=== PATIENT | female | born 1965 | race Caucasian/White ===

== ENCOUNTER 2018-07-17 08:10 | Outpatient (CLI) | payer BC | END 2018-07-17 08:11 | disposition home or self-care (01) | LOC: RAD 08:10 | DX: Z12.31 Encounter for screening mammogram for malignant neoplasm of breast (principal); E05.90 Thyrotoxicosis, unspecified without thyrotoxic crisis or storm; Z80.3 Family history of malignant neoplasm of breast ==

== ENCOUNTER 2018-08-05 17:10 | Emergency (ER) | payer BC ==
[2018-08-05] MEDS ORDERED: Sodium Chloride 0.9% 1,000 ML IV STA (17:28)
--- NOTE | 2018-08-05 17:34 | ED PDOC ---
Arrival/HPI - General Chief Complaint: Palpitations Time Seen by Provider: 08/05/18 17:20 Historian: Patient - History of Present Illness Narrative History of Present Illness (Text): 08/05/18 17:34 53 year old female, withhyperthyroid/graves non compliant with meds, presents to the ED for evaluation of chest tightness, palpitations and cough since 3 days. Patient informs unchanged symptoms since onset prompting her to present to the ED. Patient denies any other associated somatic complaints. in the er, pt anxious appearing on arrival. Patient denies any fevers, chills, headache, dizziness, chest pain, shortness of breath, dyspnea on exertion, abdominal pain, nausea, vomiting, diarrhea, back pain, neck pain, or any other complaints. 08/05/18 20:52 Time/Duration: < week Symptom Onset: Gradual Symptom Course: Unchanged Activities at Onset: Light Context: Home Past Medical History - Provider Review Nursing Documentation Reviewed: Yes - Infectious Disease Hx of Infectious Diseases: None - Reproductive Menopause: Yes Currently : Unknown - Cardiac Hx Cardiac Disorders: No - Musculoskeletal/Rheumatological Hx Musculoskeletal Disorders: No - Psychiatric Hx Substance Use: No - Anesthesia Hx Anesthesia: No Family/Social History - Physician Review Nursing Documentation Reviewed: Yes Family/Social History: No Known Family HX Smoking Status: Unknown If Ever Smoked Hx Alcohol Use: No Hx Substance Use: No Allergies/Home Meds Allergies/Adverse Reactions: Allergies No Known Allergies Allergy (Unverified 08/05/18 17:26) Review of Systems - Physician Review All systems were reviewed & negative as marked: Yes - Review of Systems Constitutional: absent: Fevers Respiratory: Cough. absent: SOB Cardiovascular: Palpitations, Other (Chest tightness). absent: Chest Pain Gastrointestinal: absent: Abdominal Pain, Diarrhea, Nausea, Vomiting Genitourinary Female: absent: Dysuria, Urine Output Changes Musculoskeletal: absent: Back Pain, Neck Pain Skin: absent: Rash Neurological: absent: Headache, Dizziness Psychiatric: absent: Anxiety Physical Exam Vital Signs Reviewed: Yes Vital Signs Temp Pulse Resp BP Pulse Ox 08/05/18 17:19 98.3 F 125 H 20 141/79 99 Temperature: Afebrile Blood Pressure: Normal Pulse: Tachycardic Respiratory Rate: Normal Appearance: Positive for: Other (Anxious appearing) Pain Distress: None Mental Status: Positive for: Alert and Oriented X 3 - Systems Exam Head: Present: Atraumatic, Normocephalic Pupils: Present: PERRL Extroacular Muscles: Present: EOMI Conjunctiva: Present: Normal Mouth: Present: Moist Mucous Membranes Neck: Present: Normal Range of Motion Respiratory/Chest: Present: Clear to Auscultation, Good Air Exchange. No: Respiratory Distress, Accessory Muscle Use Cardiovascular: Present: Regular Rate and Rhythm, Normal S1, S2. No: Murmurs Abdomen: No: Tenderness, Distention, Peritoneal Signs Back: Present: Normal Inspection Upper Extremity: Present: Normal Inspection. No: Cyanosis, Edema Lower Extremity: Present: Normal Inspection. No: Edema Neurological: Present: GCS=15, CN II-XII Intact, Speech Normal Skin: Present: Warm, Dry, Normal Color. No: Rashes Psychiatric: Present: Alert, Oriented x 3, Anxious Medical Decision Making ED Course and Treatment: 08/05/18 17:26 Impression: 53 year old female presents to the ED for evaluation of chest tightness, palpitations and cough. pt tachy to 120s non complaint with meds. ?thryotoxoicosis vs early storm, r/o other cardiac infectious metabolic etiology Plan: -- EKG -- Labs -- CXR -- IV Fluids -- Tylenol -- Influenza -- Urinalysis -- Reassess and disposition Prior Visits: Notes and results from previous visits were reviewed. Progress Notes: 08/05/18 17:26 EKG reviewed, shows NSR @ 100bpm. Nonspecific ST/T wave changes. 08/05/18 20:52 noted tsh. tachycardiar improved. non complaint with meds. case discusseed with dr valiente not [facility], [place] no e/o o fstorm at this time, acccepted dr bassett. - RAD Interpretation Radiology Orders: 08/05/18 17:27 CHEST PORTABLE [RAD] Stat - Medication Orders Current Medication Orders: Sodium Chloride (Sodium Chloride 0.9%) 1,000 mls @ 999 mls/hr IV .Q1H1M STA Stop: 08/05/18 18:28 Discontinued Medications Acetaminophen (Tylenol 325mg Tab) 975 mg PO STAT STA Stop: 08/05/18 17:29 - Scribe Statement The provider has reviewed the documentation as recorded by the Scribe Lakeisha Marion. All medical record entries made by the Scribe were at my direction and personally dictated by me. I have reviewed the chart and agree that the record accurately reflects my personal performance of the history, physical exam, medical decision making, and the department course for this patient. I have also personally directed, reviewed, and agree with the discharge instructions and disposition. Disposition/Present on Arrival - Present on Arrival Any Indicators Present on Arrival: No History of DVT/PE: No History of Uncontrolled Diabetes: No Urinary Catheter: No History of Decub. Ulcer: No History Surgical Site Infection Following: None - Disposition Have Diagnosis and Disposition been Completed?: Yes Diagnosis: Hyperthyroidism, Palpitations Disposition: HOSPITALIZED Disposition Time: 17:00 Condition: STABLE Discharge Instructions (ExitCare): Hyperthyroidism (Overactive Thyroid), Palpitations Prescriptions: methIMAzole [Tapazole] 20 mg PO BID #240 tab Propranolol HCl [Propranolol HCl ER] 60 mg PO DAILY #60 cap.sa.24h Referrals: Kamlesh Bassett DO [Primary Care Provider] - Follow up with primary
[2018-08-05 18:08] LABS: INR 1.13; PARTIAL THROMBOPLASTIN TIME 33.2 Seconds (26.9-38.3); PROTHROMBIN TIME 12.5 SECONDS (9.4-12.5)
[2018-08-05 18:09] LABS: ALB/GLOB RATIO 1.3 (1.1-1.8); ALBUMIN 4.7 g/dL (3.0-4.8); ALT/SGPT 19 U/L (7-56); AST/SGOT 23 U/L (14-36); BLOOD UREA NITROGEN 19 mg/dL (7-21); CALCIUM 9.3 mg/dL (8.4-10.5); GFR NON-AFRICAN AMERICAN > 60
[2018-08-05] MEDS ORDERED: Potassium Chloride 20 mEq ER Tab PO STA (18:10)
[2018-08-05 18:11] LABS: BASO # 0.01 K/mm3 (0.0-2.0); BASO % 0.4 % (0.0-3.0); HEMOGLOBIN 15.6 g/dL (12.0-16.0); LYMPH # 1.2 (1.2-3.4); LYMPH % 43.6 % (22.0-35.0); MEAN CELL VOLUME 79.4 fl (80.0-105.0); MEAN CORPUSCULAR HEMOGLOBIN 28.2 pg (25.0-35.0); MEAN CORPUSCULAR HGB CONC 35.5 g/dl (31.0-37.0); MEAN PLATELET VOLUME 9.5 fl (7.0-11.0); MONO # 0.4 (0.1-0.6); MONO % 12.8 % (1.0-6.0); RBC 5.53 10^6/uL (3.5-6.1); WHITE BLOOD COUNT 2.7 10^3/uL (4.5-11.0)
[2018-08-05 18:12] LABS: URINE BILIRUBIN NEGATIVE (NEGATIVE); URINE BLOOD NEGATIVE (NEGATIVE); URINE GLUCOSE (UA) NEGATIVE (NEGATIVE); URINE LEUKOCYTE ESTERASE NEGATIVE Leu/uL (NEGATIVE); URINE PROTEIN TRACE mg/dL (<30 mg/dL); URINE UROBILINOGEN 0.2 E.U./dL (<1 E.U./dL)
[2018-08-05 18:19] LABS: URINE APPEARANCE CLEAR (CLEAR); URINE COLOR YELLOW (YELLOW)
[2018-08-05 18:21] LABS: TROPONIN I < 0.01 ng/mL
[2018-08-05 18:26] LABS: FREE T4 5.21 ng/dL (0.78-2.19)
[2018-08-05 18:26] LABS: HCG,QUALITATIVE URINE NEGATIVE (NEGATIVE)
[2018-08-05 18:50] LABS: URINE BACTERIA MOD /hpf; URINE RBC 0 - 2 /hpf (0-2)
[2018-08-05] MEDS ORDERED: Dextrose 5%/0.9% NS 1,000 ML IV SCH (20:00)
--- NOTE | 2018-08-05 20:56 | CP.PCM.CON ---
<Charles Medina - Last Filed: 08/05/18 21:21> History of Present Illness - History of Present Illness History of Present Illness: Charles Medina PGY2 ICU Consult Note Reason for consult: hyperthyroid Ms. Hyatt is a 53 year old female with a PMH of Grave's disease (non-compliant with her meds) who presents w/ 3 day duration of chest tightness, palpitations, cough and overall fatigue. The patient states that she has had similar symptoms before related to her thyroid dysfunction, but never felt the chest tightness that she experienced recently. She denies any shortness of breath. She states that she was placed on Methimazole and Lopressor in 2016 when she was diagnosed with Grave's but she takes them inconsistently when she is symptomatic; she has not taken her meds in about 3 months. She denies fevers/chills, nausea/vomiting/diarrhea, paresthesia, dizziness. 12-pt ROS was reviewed and is otherwise unremarkable. PMD: Dr. Javier Endocrinology: Dr. 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 FHx: Mom (liver CA), DAD (colon CA), Aunt from mom's side (pancreatic CA) Review of Systems - Review of Systems All systems: reviewed and no additional remarkable complaints except (as per HPI) Past Patient History - Infectious Disease Hx of Infectious Diseases: None - Past Medical History & Family History Past Medical History?: Yes - Past Social History Smoking Status: Unknown If Ever Smoked Alcohol: None Drugs: Denies Home Situation {Lives}: With Family - CARDIAC Hx Cardiac Disorders: No - PULMONARY Hx Respiratory Disorders: No - NEUROLOGICAL Hx Neurological Disorder: No - RENAL Hx Chronic Kidney Disease: No - ENDOCRINE/METABOLIC Hx Hyperthyroidism: Yes - MUSCULOSKELETAL/RHEUMATOLOGICAL Hx Musculoskeletal Disorders: No - PSYCHIATRIC Hx Substance Use: No - ANESTHESIA Hx Anesthesia: No Meds Allergies/Adverse Reactions: Allergies Allergy/AdvReac Type Severity Reaction Status Date / Time No Known Allergies Allergy Unverified 08/05/18 17:26 - Medications Medications: Current Medications Dextrose/Sodium Chloride (Dextrose 5%/0.9% Ns 1000 Ml) 1,000 mls @ 100 mls/hr IV .Q10H ОЛЕГ Methimazole (Tapazole) 10 mg PO BID [facility] Physical Exam - Constitutional Appears: Well, Non-toxic, No Acute Distress - Head Exam Head Exam: ATRAUMATIC, NORMAL INSPECTION, NORMOCEPHALIC - Eye Exam Eye Exam: EOMI, Normal appearance, PERRL - ENT Exam ENT Exam: Mucous Membranes Moist, Normal Exam - Neck Exam Neck exam: Positive for: Full Rom, Normal Inspection. Negative for: Tenderness, Thyromegaly - Respiratory Exam Respiratory Exam: Clear to Auscultation Bilateral, NORMAL BREATHING PATTERN. absent: Rales, Rhonchi, Wheezes, Respiratory Distress - Cardiovascular Exam Cardiovascular Exam: RRR, +S1, +S2. absent: JVD - GI/Abdominal Exam GI & Abdominal Exam: Normal Bowel Sounds, Soft. absent: Distended, Tenderness - Extremities Exam Extremities exam: Positive for: full ROM, normal inspection, pedal pulses present. Negative for: tenderness - Back Exam Back exam: NORMAL INSPECTION - Neurological Exam Neurological exam: Alert, CN II-XII Intact, Oriented x3, Reflexes Normal - Psychiatric Exam Psychiatric exam: Normal Affect, Normal Mood - Skin Skin Exam: Intact, Normal Color, Warm Results - Vital Signs Recent Vital Signs: Last Vital Signs Temp 98.3 F 08/05/18 17:19 Pulse 90 08/05/18 17:27 Resp 15 08/05/18 17:27 BP 124/65 08/05/18 17:27 Pulse Ox 100 08/05/18 17:27 - Labs Result Diagrams: 08/05/18 17:47 08/05/18 17:47 Labs: Laboratory Results - last 24 hr 08/05/18 08/05/18 08/05/18 17:47 17:47 17:47 WBC 2.7 L RBC 5.53 Hgb 15.6 Hct 43.9 MCV 79.4 L MCH 28.2 MCHC 35.5 RDW 12.0 Plt Count 246 MPV 9.5 Neut % (Auto) 43.2 L Lymph % (Auto) 43.6 H [place] % (Auto) 12.8 H Eos % (Auto) 0.0 L Baso % (Auto) 0.4 Lymph # (Auto) 1.2 [place] # (Auto) 0.4 Eos # (Auto) 0.0 Baso # (Auto) 0.01 Absolute Neuts (auto) 1.18 L PT 12.5 INR 1.13 APTT 33.2 Sodium 137 Potassium 3.0 L Chloride 97 L Carbon Dioxide 29 Anion Gap 14 BUN 19 Creatinine 0.5 L Est GFR ( Amer) > 60 Est GFR (Non-Af Amer) > 60 Random Glucose 112 H Calcium 9.3 Magnesium 1.9 Total Bilirubin 0.5 AST 23 ALT 19 Alkaline Phosphatase 87 Lactate Dehydrogenase 384 Total Creatine Kinase 31 L Troponin I < 0.01 NT-Pro-B Natriuret Pep 53.0 Total Protein 8.2 Albumin 4.7 Globulin 3.5 Albumin/Globulin Ratio 1.3 Free T4 TSH 3rd Generation Urine Color Urine Appearance Urine pH Ur Specific [place]man Urine Protein Urine Glucose (UA) Urine Ketones Urine Blood Urine Nitrate Urine Bilirubin Urine Urobilinogen Ur Leukocyte Esterase Urine RBC Urine WBC Ur Epithelial Cells Urine Bacteria Urine Other Urine HCG, Qual Influenza Typ A,B (EIA) 08/05/18 08/05/18 08/05/18 17:47 17:47 18:05 WBC RBC Hgb Hct MCV MCH MCHC RDW Plt Count MPV Neut % (Auto) Lymph % (Auto) [place] % (Auto) Eos % (Auto) Baso % (Auto) Lymph # (Auto) [place] # (Auto) Eos # (Auto) Baso # (Auto) Absolute Neuts (auto) PT INR APTT Sodium Potassium Chloride Carbon Dioxide Anion Gap BUN Creatinine Est GFR ( Amer) Est GFR (Non-Af Amer) Random Glucose Calcium Magnesium Total Bilirubin AST ALT Alkaline Phosphatase Lactate Dehydrogenase Total Creatine Kinase Troponin I NT-Pro-B Natriuret Pep Total Protein Albumin Globulin Albumin/Globulin Ratio Free T4 5.21 H TSH 3rd Generation < 0.02 L Urine Color Yellow Urine Appearance Clear Urine pH 6.0 Ur Specific [place] >= 1.030 Urine Protein Trace H Urine Glucose (UA) Negative Urine Ketones >=80 Urine Blood Negative Urine Nitrate Negative Urine Bilirubin Negative Urine Urobilinogen 0.2 Ur Leukocyte Esterase Negative Urine RBC 0 - 2 Urine WBC 2 - 5 Ur Epithelial Cells 6 - 8 H Urine Bacteria Mod Urine Other Mucus Urine HCG, Qual Negative Influenza Typ A,B (EIA) Negative for flu a/b Assessment & Plan - Assessment and Plan (Free Text) Assessment: 53 year old female with a PMH of Grave's disease (non-compliant with her meds) who presents w/ 3 day duration of chest tightness, palpitations, cough and overall fatigue. TSH is low, and fT4 is elevated indicating hyperthyroidism, that is symptomatic. Symptoms due to non-compliance with medications. ICU consulted for evaluation of hyperthyroidism. Plan: - agree w/ admission to telemetry unit - no need for ICU admission at this time, please consult if any changes in status - Endo is consulted - cont methimazole - cont symptomatic relief Case was discussed with Dr. Cleary <Nina Cleary - Last Filed: 08/05/18 21:30> Meds - Medications Medications: Current Medications Dextrose/Sodium Chloride (Dextrose 5%/0.9% Ns 1000 Ml) 1,000 mls @ 100 mls/hr IV .Q10H ОЛЕГ Last Admin: 08/05/18 21:04 Dose: 100 mls/hr Methimazole (Tapazole) 10 mg PO BID ОЛЕГ Last Admin: 08/05/18 21:05 Dose: 10 mg Results - Vital Signs Recent Vital Signs: Last Vital Signs Temp 98.3 F 08/05/18 17:19 Pulse 93 H 08/05/18 21:04 Resp 15 08/05/18 17:27 BP 110/60 08/05/18 21:04 Pulse Ox 100 08/05/18 17:27 - Labs Result Diagrams: 08/05/18 17:47 08/05/18 17:47 Labs: Laboratory Results - last 24 hr 08/05/18 08/05/18 08/05/18 17:47 17:47 17:47 WBC 2.7 L RBC 5.53 Hgb 15.6 Hct 43.9 MCV 79.4 L MCH 28.2 MCHC 35.5 RDW 12.0 Plt Count 246 MPV 9.5 Neut % (Auto) 43.2 L Lymph % (Auto) 43.6 H [place] % (Auto) 12.8 H Eos % (Auto) 0.0 L Baso % (Auto) 0.4 Lymph # (Auto) 1.2 [place] # (Auto) 0.4 Eos # (Auto) 0.0 Baso # (Auto) 0.01 Absolute Neuts (auto) 1.18 L PT 12.5 INR 1.13 APTT 33.2 Sodium 137 Potassium 3.0 L Chloride 97 L Carbon Dioxide 29 Anion Gap 14 BUN 19 Creatinine 0.5 L Est GFR ( Amer) > 60 Est GFR (Non-Af Amer) > 60 Random Glucose 112 H Calcium 9.3 Magnesium 1.9 Total Bilirubin 0.5 AST 23 ALT 19 Alkaline Phosphatase 87 Lactate Dehydrogenase 384 Total Creatine Kinase 31 L Troponin I < 0.01 NT-Pro-B Natriuret Pep 53.0 Total Protein 8.2 Albumin 4.7 Globulin 3.5 Albumin/Globulin Ratio 1.3 Free T4 TSH 3rd Generation Urine Color Urine Appearance Urine pH Ur Specific [place] Urine Protein Urine Glucose (UA) Urine Ketones Urine Blood Urine Nitrate Urine Bilirubin Urine Urobilinogen Ur Leukocyte Esterase Urine RBC Urine WBC Ur Epithelial Cells Urine Bacteria Urine Other Urine HCG, Qual Influenza Typ A,B (EIA) 08/05/18 08/05/18 08/05/18 17:47 17:47 18:05 WBC RBC Hgb Hct MCV MCH MCHC RDW Plt Count MPV Neut % (Auto) Lymph % (Auto) [place] % (Auto) Eos % (Auto) Baso % (Auto) Lymph # (Auto) [place] # (Auto) Eos # (Auto) Baso # (Auto) Absolute Neuts (auto) PT INR APTT Sodium Potassium Chloride Carbon Dioxide Anion Gap BUN Creatinine Est GFR ( Amer) Est GFR (Non-Af Amer) Random Glucose Calcium Magnesium Total Bilirubin AST ALT Alkaline Phosphatase Lactate Dehydrogenase Total Creatine Kinase Troponin I NT-Pro-B Natriuret Pep Total Protein Albumin Globulin Albumin/Globulin Ratio Free T4 5.21 H TSH 3rd Generation < 0.02 L Urine Color Yellow Urine Appearance Clear Urine pH 6.0 Ur Specific [place] >= 1.030 Urine Protein Trace H Urine Glucose (UA) Negative Urine Ketones >=80 Urine Blood Negative Urine Nitrate Negative Urine Bilirubin Negative Urine Urobilinogen 0.2 Ur Leukocyte Esterase Negative Urine RBC 0 - 2 Urine WBC 2 - 5 Ur Epithelial Cells 6 - 8 H Urine Bacteria Mod Urine Other Mucus Urine HCG, Qual Negative Influenza Typ A,B (EIA) Negative for flu a/b Attending/Attestation - Attestation I have personally seen and examined this patient.: Yes I have fully participated in the care of the patient.: Yes I have reviewed all pertinent clinical information: Yes Notes (Text): 08/05/18 21:28 All symptoms can be attributed to hyperthyroidism Pt. admits to not taking methimazole because she thought she was cured chest tightness, recommends trending troponin started home metoprolol, methimazole and added D5NS at 100 cc/hr
--- NOTE | 2018-08-05 23:22 | CARD ---
APPROVED REPORT Date of service: 08/05/2018 EKG Measurement Heart [id number] MD [id number] <Conclusion> Normal sinus rhythm Possible Left atrial enlargement Minor NDSTT abnormalities Borderline ECG
--- NOTE | 2018-08-06 01:00 | CON ---
DATE: 08/05/2018 ENDOCRINOLOGY CONSULT HISTORY OF PRESENT ILLNESS: This is a 53-year-old female with known history of hyperthyroidism related to Graves disease, presenting here with progressively worsening palpitations and precordial chest pain and is now being referred for endocrine evaluation and management. PAST MEDICAL HISTORY: History of Graves disease with hyperthyroidism diagnosed about 3 years ago and was placed on methimazole and Lopressor at that time which she has been poorly compliant until the present time. She has been off medications about 3 months ago. FAMILY HISTORY: No known thyroid endocrinopathy but strongly positive for GI related cancers as noted. SOCIAL HISTORY: The patient has a supportive family. No known substance use. REVIEW OF SYSTEMS: Admits to generalized body weakness with episodic bouts of dizziness and lightheadedness, supervening generalized body weakness with marked insomnia, especially worse in the last few weeks prior to admission. Also admits to progressively worsening chest pains with palpitations, especially on exertion, with exertional shortness of breath as noted. Her oral intake has been variable with nausea, dyspepsia and vague upper abdominal pains with hyperdefecation. Also admits to occasional tremors, especially in upper extremities. PHYSICAL EXAMINATION: GENERAL: This is an average build female in no apparent distress. VITAL SIGNS: Blood pressure of 140/80, pulse of 70 beats per minute and regular, temperature 98, respirations 20, height is 5 feet 3 inches, weight is 120 pounds. HEENT: Head normocephalic. Eyes anicteric with pink conjunctivae. Funduscopy not possible at this time. Ears, nose and throat otherwise normal. NECK: Supple. Thyroid gland shows nodular thyromegaly which is firm and nontender. HEART: Hyperdynamic precordium. S1, S2 is rapid and regular. LUNGS: Clear to auscultation. ABDOMEN: Flat, soft, with positive bowel sounds. EXTREMITIES: No peripheral edema. Pulses are +2 bilaterally. LABORATORY DATA: Her chemistries showed BUN of 19, sodium 137, potassium 3, chloride 97, CO2 of 29, glucose 112 and creatinine 0.5. Her free T4 is 5.21 with a TSH of less than 0.02. Troponin is less than 0.01. ASSESSMENT: This is a 53-year-old female with overt thyrotoxicosis, presenting here with marked hyperthyroidism noted both historically, clinically and biochemically related to underlying Graves disease with a diffuse toxic goiter. She also has marked hyperadrenergic and constitutional manifestations related to the aforementioned. PLAN OF MANAGEMENT: We will modify her medical therapy to a higher dosing of Tapazole given as 20 mg b.i.d. to start tomorrow morning as ordered. We will obtain a comprehensive thyroid hormonal profile to include a total and free T4 and TSH as ordered. We will also obtain a thyroid-stimulating immunoglobulin, a thyroid peroxidase antibody and a thyroglobulin panel to confirm and/or indicate the presence of underlying thyroid autoimmunity. We will obtain serial chemistries and supplement accordingly as needed. Would recommend radioactive iodine ablation to enhance compliance at this point in time, although medical therapy would be a better option if the patient will be compliant with her medications as noted. We will obtain a thyroid ultrasound, even to be done as an outpatient as she is only admitted for observation overnight. We will continue the beta blockers as ordered, and again to enhance compliance on discharge, would recommend long-acting propranolol given as 80 mg once daily as indicated. The Tapazole can be given also once a day with a dose of 20-30 mg once daily as indicated. We will await the results of the thyroxine or total T4 level as this is more indicative of three of hyperthyroidism accordingly. We will follow. Shanika Livingston MD
[2018-08-06 04:46] VITALS: BP 116/68; PULSE 74; RESP 16; TEMP 98.2; O2SAT 98
--- NOTE | 2018-08-06 07:16 | CP.PCM.PN ---
Subjective - Date & Time of Evaluation Date of Evaluation: 08/06/18 Time of Evaluation: 07:20 - Subjective Subjective: Endocrine Service Progress Note for Dr. Miki Cooper DO, IM PGY-3 Patient seen and examined at bedside. No acute events overnight as per nursing and patient. Patient reports improvement of palpitations and chest pain today. Reinforced that this will continue to happen if she continues to stop taking her medication every time she feels better. Patient expressed understanding and reports that she is contemplating having a thyroidectomy. Explained that she will then need thyroid supplementation, which also requires medication compliance; patient expressed understanding. Objective - Vital Signs/Intake and Output Vital Signs (last 24 hours): Temp Pulse Resp BP Pulse Ox 98.2 F 74 16 116/68 98 08/06/18 02:42 08/06/18 02:42 08/06/18 02:42 08/06/18 02:42 08/06/18 02:42 - Medications Medications: Current Medications Dextrose/Sodium Chloride (Dextrose 5%/0.9% Ns 1000 Ml) 1,000 mls @ 100 mls/hr IV .Q10H ОЛЕГ Last Admin: 08/05/18 21:04 Dose: 100 mls/hr Methimazole (Tapazole) 20 mg PO BID ОЛЕГ - Labs Labs: 08/05/18 17:47 08/05/18 17:47 PT 12.5 SECONDS (9.4-12.5) 08/05/18 17:47 INR 1.13 08/05/18 17:47 APTT 33.2 Seconds (26.9-38.3) 08/05/18 17:47 - Constitutional Appears: Non-toxic, No Acute Distress - Head Exam Head Exam: ATRAUMATIC, NORMAL INSPECTION, NORMOCEPHALIC - Eye Exam Eye Exam: EOMI, Normal appearance. absent: Conjunctival injection, Scleral icterus Pupil Exam: absent: Irregular, Unequal - ENT Exam ENT Exam: Mucous Membranes Moist - Neck Exam Neck Exam: Normal Inspection. absent: Tenderness, Thyromegaly - Respiratory Exam Respiratory Exam: Clear to Ausculation Bilateral, NORMAL BREATHING PATTERN. absent: Accessory Muscle Use, Chest Wall Tenderness, Decreased Breath Sounds, Rales, Rhonchi, Wheezes - Cardiovascular Exam Cardiovascular Exam: REGULAR RHYTHM, RRR, +S1, +S2. absent: Bradycardia, Tachycardia, Irregular Rhythm, JVD, +S4 - GI/Abdominal Exam GI & Abdominal Exam: Soft, Normal Bowel Sounds. absent: Distended, Firm, Guarding, Rigid, Tenderness, Diminished Bowel Sounds, Hyperactive Bowel Sounds, Hypoactive Bowel Sounds - Extremities Exam Extremities Exam: Full ROM, Normal Capillary Refill, Normal Inspection. absent: Calf Tenderness, Pedal Edema, Tenderness - Neurological Exam Neurological Exam: Alert, Awake, Oriented x3 Additional comments: moving all extremities spontaneously and on command - Psychiatric Exam Psychiatric exam: Normal Affect, Normal Mood - Skin Skin Exam: Dry, Intact, Normal Color, Warm Assessment and Plan - Assessment and Plan (Free Text) Assessment: This is a 53 yo F with PMH of Hyperthyroidism 2/2 Grave's disease and medication non-compliance who presented to [facility] [place] with complaint of palpitations and chest pain, and admitted to 3+ months of medication noncompliance. She was found to again be hyperthyroid, which Endocrine was consulted for. Plan: 1) Hyperthyroidism 2/2 Grave's Disease 2) Medication Non-compliance 3) suppressed TSH/elevated Free T4 4) Palpitations/Chest pain: likely 2/2 hyperthyroidism and med noncompliance -Restarted on methimazole and increased to 20mg BID, restarted home metoprolol tartrate 25mg BID -TSH remains suppressed, T4 elevate at 19.6, Free T4 improved but still elevated at 4.37 (was 5.21), continue methimazole and titrate accordingly -Suspect chest pain/palpitations 2/2 to hyperthyroid and med noncompliance, less likely ACS, trop in ED was negative -Patient considering thyroidectomy, however informed that would likely then need routine thyroid supplementation, and stressed the importance of medication compliance in any scenario; patient expressed understanding and reports will be compliant in the future Will discuss with attending, Dr. Livingston. Further recs as per attending.
[2018-08-06 08:19] LABS: ALB/GLOB RATIO 1.3 (1.1-1.8); ALBUMIN 3.9 g/dL (3.0-4.8); ALT/SGPT 18 U/L (7-56); AST/SGOT 19 U/L (14-36); BLOOD UREA NITROGEN 12 mg/dL (7-21); CALCIUM 8.6 mg/dL (8.4-10.5); GFR NON-AFRICAN AMERICAN > 60
[2018-08-06 08:33] LABS: FREE T4 4.37 ng/dL (0.78-2.19); T4 19.6 ug/dL (5.5-11.0)
--- NOTE | 2018-08-06 09:21 | HP ---
DATE OF EXAM: 08/06/2018 HISTORY OF PRESENT ILLNESS: She is in the emergency room to the chest tightness, palpitations, cough for 3 days, that is somatic complaint, very anxious appearing. She is 53-year-old female history of hyperthyroid, Graves disease. Does not taken her medications. She has done this before in the past. She is very noncompliant and does not like to take pills on regular basis. FAMILY HISTORY: Unknown family history. SOCIAL HISTORY: No smoker. No drinker. No drugs. ALLERGIES: NO KNOWN DRUG ALLERGIES. MEDICATIONS: Does not remember what medications she was prescribed. I am pretty sure, it was Tapazole. REVIEW OF SYSTEMS: No fevers. Does have cough. No shortness of breath, palpitations, chest tightness, abdominal pain. No nausea, vomiting, constipation or diarrhea. No urinary tract problems. No back pain. No neck pain. No rashes. No headaches. No dizziness. Very anxious. Very stimulated. PHYSICAL EXAMINATION: GENERAL: Anxious appearing, stressed, alert and oriented x3. VITAL SIGNS: He has 98.3 temp, 125 pulse, 20 respiratory rate, 141/79 blood pressure and 99% O2 saturation. HEENT: Head is atraumatic and normocephalic. Extraocular muscles intact. Pupils equal and reactive to light. Throat is moist. NECK: Supple. HEART: Regular rate. Normal S1 and S2. LUNGS: Decreased breath sounds, but clear to auscultation. ABDOMEN: Soft and nontender. Positive bowel sounds. No guarding. No rebound. No CVA tenderness. EXTREMITIES: Have no edema. NEUROLOGIC: GCS is 15. Cranial nerves II through XII grossly intact. Speech is normal. Just a little bit exciteable. Alert and oriented x3. SKIN: Warm and dry. No apparent rashes or ulcers. MEDICATIONS: She is currently on Tapazole and IV fluids. LABORATORY DATA: She had a white count of 2.7 waiting for this morning 15.6 hemoglobin, 42.9 hematocrit and 246 platelets. INR is 1.13. Sodium 137, potassium 3, was replaced, BUN 19, creatinine 0.5, GFR is greater than 60, sugar is 112, calcium is 9.3, magnesium 1.9, total bili is 0.5, AST is 23, ALT is 19, alk phos 87, lactate hydrogenase 384. Troponin I is less than 0.01. BNP is 53. Total protein 8.2, albumin 4.7, globulin 3.5. TSH was less than 0.02. Urine was moderate bacteria, not . Leukocytes were negative. Negative for the flu. The chest x-ray is pending. ASSESSMENT AND PLAN: She will have consult with Endocrinology. I think there is question about that she should have thyroid surgery, was also question in the ER if she is going to the Intensive Care Unit. We are checking the labs as per Endocrinology, when I can be discharged, I will discharge her. Supposed to be propranolol 80 mg a day and Tapazole once a day, mg. Continue aggressive treatment and care. When it is okay with Endocrinology, I will discharge. She is here for a hyperthyroid. Kamlesh Javier DO MTDPrudencio
--- NOTE | 2018-08-06 09:47 | RAD ---
Date of service: 08/05/2018 HISTORY: palpitations COMPARISON: No prior. FINDINGS: LUNGS: No active pulmonary disease. PLEURA: No significant pleural effusion identified, no pneumothorax apparent. CARDIOVASCULAR: No aortic atherosclerotic calcification present. Normal cardiac size. No pulmonary vascular congestion. OSSEOUS STRUCTURES: No significant abnormalities. VISUALIZED UPPER ABDOMEN: Normal. OTHER FINDINGS: None. IMPRESSION: No active disease.
[2018-08-06] MEDS ORDERED: Potassium Chloride 20 mEq ER Tab PO SCH (10:00)
--- NOTE | 2018-08-06 12:14 | PN ---
DATE: 08/05/2018 ENDOCRINOLOGY FOLLOWUP NOTE LOCATION: ER holding room 13. SUBJECTIVE: This is a 53-year-old female with marked hyperthyroidism related to drug omission and presenting here with precordial chest pains and palpitations with progressive shortness of breath and is now being followed closely for metabolic management. She remains clinically and biochemically hyperthyroxinemic at this time. Her latest thyroid studies done today showed a T4 or thyroxine level of 19.6 mcg/dL with a free T4 of 4.37 and a TSH of less than 0.02. Her chemistry showed a BUN of 12, sodium 138, potassium 3.0, chloride 104, CO2 of 27, glucose 104 and creatinine 0.5. ASSESSMENT: This is a 53-year-old female with overt thyrotoxicosis presenting here with marked hyperthyroidism both historically, clinically and biochemically related to drug omission with underlying Grave's disease with a diffuse toxic goiter. There is also expected hypokalemia with the underlying marked hyperthyroidism as noted thereof with also very low protein mass index with the extremely hypermetabolic state of the patient expected thereof. PLAN OF MANAGEMENT: We will continue the modified and higher dosing of Tapazole given as 20 mg b.i.d. after meals to start today as ordered. We will continue the IV hydration as given and if her sinus tachycardia subsides, then she can actually be cleared for discharge on a combination of medical therapy for hyperthyroidism with Tapazole given as 20 mg b.i.d. and propranolol LA at 80 mg once daily to enhance compliance and adherence to the aforementioned medications. She has been advised to follow with her outboard motor tester also for ongoing outpatient and thyroid management. Shanika Livingston MD
--- NOTE | 2018-08-06 15:48 | US ---
Date of service: 08/06/2018 HISTORY: hyperthyroid, assess for nodules TECHNIQUE: Sonographic evaluation of the thyroid gland. COMPARISON: Not available FINDINGS: RIGHT LOBE: Measures 6.2 x 1.7 x 2.1 cm. Normal echotexture and flow. Nodules: None LEFT LOBE: Measures 5.2 x 2.1 x 1.8 cm. Normal echotexture and flow. Nodules: None ISTHMUS: Measures 0.4 cm. Normal echotexture and flow. Nodules: None OTHER FINDINGS: None . IMPRESSION: Mild thyromegaly. Otherwise unremarkable.
[2018-08-07 04:03] LABS: THYROGLOBULIN 198.9 ng/mL (2.8-40.9)
[2018-08-07] MEDS ORDERED: Propranolol 60 mg ER Cap PO SCH (10:00)
== END 2018-08-06 20:31 | disposition home or self-care (01) ==
LOC: ED 17:10 → ERH 20:05 → UNDOADMOB 20:05 → ERH 08-06 13:26 → ED 08-06 20:31
DX: E05.00 Thyrotoxicosis with diffuse goiter without thyrotoxic crisis or storm (principal); R00.2 Palpitations
CPT/HCPCS: 71045; 76536; 80053; 81001; 81025; 82533; 82550; 83615; 83735; 83880; 84432; 84439; 84443; 84445; 84484; 84703; 85025; 85610; 85730; 86376; 86800; 87804; 93005; 99284; J7030; J7042